=== PATIENT | female | born 1930 | race Caucasian/White ===

== ENCOUNTER → 2016-09-22 | Outpatient (CLI) | payer MEDICARE, BC ==
[~2016-09-22] MED LIST: /AMLO25TA PO; /ESCI10TA PO; /NITR4TASL SL; ASPI81TA85 PO; CALCTAB68 PO; COLC0.6T34 PO; GELN10GE TD; JANU50TA25 PO; JANU50TA8 PO; LASI20TA PO; LEVO100T4 PO; LOPR50TA PO; METF500T PO; NAPR500T2 PO; PRIL40CA PO; SENO8.6T9 OR; SIMV40TA2 PO; SITA50TAB PO; SYMB16INH INH; TENO25TA PO; ULOR80TA2 PO; ULTR50TA PO; VITA500T53 PO; ZOCO40TA PO; [UNRECOGNIZED DRUG - OTHER] EXT
[2016-09-22 08:44] LABS: MEAN CORPUSCULAR HGB CONC 33.9 g/dl (32.0-36.5); MEAN CORPUSCULAR VOLUME 91.4 fl (80.0-96.0); RED CELL DISTRIBUTION WIDTH 13.5 % (11.5-14.5)
[2016-09-22 08:52] LABS: ALBUMIN 3.7 GM/DL (3.2-5.2); ALBUMIN/GLOBULIN RATIO 1.16 (1.00-1.93); BILIRUBIN,TOTAL 0.5 MG/DL (0.2-1.0); CALCIUM LEVEL 9.4 MG/DL (8.8-10.2); CREATININE FOR GFR 1.03 MG/DL (0.55-1.02); FREE T4 1.5 NG/DL (0.76-1.46); POTASSIUM SERUM 3.9 MEQ/L (3.5-5.1); TOTAL PROTEIN 6.9 GM/DL (6.4-8.2)
== END ==
LOC: M LAB 07:29
PROVIDERS: ATTEND Nurse Practitioner Family
DX: I10 Essential (primary) hypertension (principal); E11.9 Type 2 diabetes mellitus without complications; E55.9 Vitamin D deficiency, unspecified; E03.9 Hypothyroidism, unspecified; E78.5 Hyperlipidemia, unspecified; D51.0 Vitamin B12 deficiency anemia due to intrinsic factor deficiency

== ENCOUNTER 2016-11-17 06:38 | Outpatient (CLI) | payer MEDICARE, BC ==
[~2016-11-17] VITALS: Ht 152.4 cm; Wt 68.5 kg
[~2016-11-17 06:38] MED LIST changes: +AMLO5TAB2; +ASPI1TAB PO; +FURO20TA2; +JANU100T; +LEVO75TA4; +LEXA5TAB13; +METO-346; +NAPR500T3 PO; +OMEP40CA2; +SIMV40TA2; +STOO100C PO; +TYLE500T78 PO; +VITA10002 PO
[2016-11-17] MEDS ORDERED: NS 1,000 ML IV SCH (07:00)
[2016-11-17] MEDS ORDERED: PROPOFOL 200 MG/20 ML VIAL As Ordered ONE ×2 (07:09→07:57)
--- NOTE | 2016-11-17 08:16 | ROOR ---
Patient Name: Flora Skinner Procedure Date: 11/17/2016 7:33 AM Date of : 1930 Age: 86 Room: [facility] Gender: Female Note Status: Finalized Procedure: Colonoscopy Indications: Clinically significant diarrhea of unexplained origin, Change in bowel habits Providers: Berlin Schaeffer MD Referring MD: BREANNA HENRY MD Requesting Provider: Medicines: Monitored Anesthesia Care Complications: No immediate complications. Procedure: Pre-Anesthesia Assessment: - Prior to the procedure, a History and Physical was performed, and patient medications and allergies were reviewed. The patient is competent. The risks and benefits of the procedure and the sedation options and risks were discussed with the patient. All questions were answered and informed consent was obtained. Patient identification and proposed procedure were verified by the physician, the nurse and the anesthesiologist in the pre-procedure area in the endoscopy suite. Mental Status Examination: alert and oriented. Airway Examination: normal oropharyngeal airway and neck mobility. Respiratory Examination: clear to auscultation. CV Examination: normal. Prophylactic Antibiotics: The patient does not require prophylactic antibiotics. Prior Anticoagulants: The patient has taken aspirin, last dose was 3 days prior to procedure. ASA Grade Assessment: III - A patient with severe systemic disease. After reviewing the risks and benefits, the patient was deemed in satisfactory condition to undergo the procedure. The anesthesia plan was to use moderate sedation / analgesia (conscious sedation). Immediately prior to administration of medications, the patient was re-assessed for adequacy to receive sedatives. The heart rate, respiratory rate, oxygen saturations, blood pressure, adequacy of pulmonary ventilation, and response to care were monitored throughout the procedure. The physical status of the patient was re-assessed after the procedure. The Colonoscope was introduced through the anus and advanced to the cecum, identified by appendiceal orifice and ileocecal valve. The colonoscopy was somewhat difficult due to multiple diverticula in the colon and significant looping. The patient tolerated the procedure well. The quality of the bowel preparation was adequate to identify polyps. Findings: The perianal exam findings include non-thrombosed external hemorrhoids. Multiple small and large-mouthed diverticula were found in the sigmoid colon, descending colon and ascending colon. Altered anatomy, muscular thickening of the martini of colon. A small polyp was found in the transverse colon. The polyp was pedunculated. The polyp was removed with a hot snare. Resection and retrieval were complete. Estimated blood loss: none. No additional abnormalities were found on retroflexion. Impression: - Non-thrombosed external hemorrhoids found on perianal exam. - Moderate diverticulosis in the sigmoid colon, in the descending colon and in the ascending colon. Altered anatomy, muscular thickening of the martini of colon. - One small polyp in the transverse colon, removed with a hot snare. Resected and retrieved. Recommendation: - Discharge patient to home (ambulatory). - Use fiber, for example Citrucel, Fibercon, Konsyl or Metamucil. - Telephone my office for pathology results in 2 weeks. Berlin Schaeffer MD Berlin Schaeffer MD 11/17/2016 8:15:27 AM This report has been signed electronically. Number of Addenda: 0 Note Initiated On: 11/17/2016 7:33 AM Estimated Blood Loss: Estimated blood loss: none.
[2016-11-17 08:30] VITALS: BP 138/71
== END 2016-11-17 08:44 | disposition home or self-care (01) ==
LOC: M OPP 06:38
PROVIDERS: ATTEND Surgery
DX: R19.4 Change in bowel habit (principal); R19.7 Diarrhea, unspecified; D12.3 Benign neoplasm of transverse colon; K64.4 Residual hemorrhoidal skin tags; K57.30 Diverticulosis of large intestine without perforation or abscess without bleeding; R14.0 Abdominal distension (gaseous); R15.9 Full incontinence of feces; I25.10 Atherosclerotic heart disease of native coronary artery without angina pectoris; I12.9 Hypertensive chronic kidney disease with stage 1 through stage 4 chronic kidney disease, or unspecified chronic kidney disease; E78.5 Hyperlipidemia, unspecified; E11.9 Type 2 diabetes mellitus without complications; E03.9 Hypothyroidism, unspecified; K44.9 Diaphragmatic hernia without obstruction or gangrene; R12 Heartburn; M19.90 Unspecified osteoarthritis, unspecified site; M54.89 Other dorsalgia; M81.0 Age-related osteoporosis without current pathological fracture; F32.9 Major depressive disorder, single episode, unspecified; F41.9 Anxiety disorder, unspecified; Z78.0 Asymptomatic menopausal state; Z95.5 Presence of coronary angioplasty implant and graft; Z86.79 Personal history of other diseases of the circulatory system; R06.02 Shortness of breath; N18.4 Chronic kidney disease, stage 4 (severe); R32 Unspecified urinary incontinence; Z87.09 Personal history of other diseases of the respiratory system; Z91.041 Radiographic dye allergy status; Z91.013 Allergy to seafood; Z88.3 Allergy status to other anti-infective agents; Z79.82 Long term (current) use of aspirin; Z79.899 Other long term (current) drug therapy; Z87.891 Personal history of nicotine dependence

== ENCOUNTER 2016-12-17 16:43 | Emergency (ER) | payer MEDICARE, BC ==
[~2016-12-17] VITALS: Ht 152.4 cm; Wt 71.4 kg
[2016-12-17 18:56] LABS: BASO % 0.4 % (0.0-1.0); EOS # 0.3 K/mm3 (0.0-0.50); EOS % 4.5 % (0.0-3.0); LARGE UNSTAINED CELL # 0.2 K/mm3 (0.0-0.4); LARGE UNSTAINED CELL % 2.9 % (0.0-4.0); LYMPH # 2.2 K/mm3 (1.5-4.5); MEAN CORPUSCULAR HEMOGLOBIN 31.8 pg (27.0-33.0); MEAN CORPUSCULAR HGB CONC 34.6 g/dl (32.0-36.5); MEAN CORPUSCULAR VOLUME 91.9 fl (80.0-96.0); MONO # 0.4 K/mm3 (0.0-0.8); MONO % 6.8 % (0.0-5.0); NEUTROPHILS # 3.2 K/mm3 (1.8-7.7); NEUTROPHILS % 50.4 % (36.0-66.0); PLATELET COUNT, AUTOMATED 224 k/mm3 (150-450); RED CELL DISTRIBUTION WIDTH 13.7 % (11.5-14.5); WHITE BLOOD COUNT 6.3 K/mm3 (4.0-10.0)
[2016-12-17 19:31] LABS: ANION GAP 11 MEQ/L (8-16); BLOOD UREA NITROGEN 20 MG/DL (7-18); CALCIUM LEVEL 9.4 MG/DL (8.8-10.2); CARBON DIOXIDE LEVEL 26 MEQ/L (21-32); CHLORIDE LEVEL 110 MEQ/L (98-107); CREATININE FOR GFR 1.28 MG/DL (0.55-1.02); GLUCOSE, FASTING 135 MG/DL (83-110); SODIUM LEVEL 147 MEQ/L (136-145)
[2016-12-17 19:37] LABS: ALBUMIN 4.1 GM/DL (3.2-5.2); ALBUMIN/GLOBULIN RATIO 1.41 (1.00-1.93); ALKALINE PHOSPHATASE 69 U/L (45-117); ALT/SGPT 16 U/L (12-78); AST/SGOT 11 U/L (15-37); BILIRUBIN,DIRECT < 0.1 MG/DL (0.0-0.2); BILIRUBIN,TOTAL 0.3 MG/DL (0.2-1.0); FREE T4 1.03 NG/DL (0.76-1.46)
[2016-12-17 20:26] VITALS: O2SAT 94
[2016-12-17 20:40] VITALS: BP 172/86
--- NOTE | 2016-12-17 20:41 | REP ---
Clinical: Dyspnea and cough. Comparison: 10/04/2012. Findings: Mediastinum and cardiac silhouette are within normal limits for portable technique. Thoracic aortic stent noted. No focal consolidation, effusion, or pneumothorax. Trace basilar atelectasis cannot be excluded. Skeletal structures demonstrate osteopenia and degenerative changes most notably involving the bilateral shoulders (right greater than left). Impression: Chronic-appearing interstitial changes. No obvious acute cardiopulmonary process. Cannot exclude trace basilar atelectasis. Signed by Curtis Garcia MD 12/17/2016 08:33 P
--- NOTE | 2016-12-18 17:26 | ECGEPIP ---
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
== END 2016-12-17 21:14 | disposition home or self-care (01) ==
LOC: M ED 16:43
DX: I25.10 Atherosclerotic heart disease of native coronary artery without angina pectoris (principal); I10 Essential (primary) hypertension; E11.9 Type 2 diabetes mellitus without complications; K21.9 Gastro-esophageal reflux disease without esophagitis; E78.9 Disorder of lipoprotein metabolism, unspecified; E07.9 Disorder of thyroid, unspecified; Z95.5 Presence of coronary angioplasty implant and graft; Z87.891 Personal history of nicotine dependence

== ENCOUNTER 2017-03-12 13:25 | Emergency (ER) | payer OTHER, MEDICARE, BC ==
[~2017-03-12] VITALS: Ht 152.4 cm; Wt 71.8 kg
[2017-03-12 13:34] VITALS: BP 136/65
--- NOTE | 2017-03-13 08:01 | ECGEPIP ---
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
== END 2017-03-12 14:32 | disposition home or self-care (01) ==
LOC: EDBD 13:25 → M ED 13:25
DX: Z04.1 Encounter for examination and observation following transport accident (principal); Z95.0 Presence of cardiac pacemaker; V43.62XA Car passenger injured in collision with other type car in traffic accident, initial encounter; Y92.410 Unspecified street and highway as the place of occurrence of the external cause; Y93.9 Activity, unspecified; Y99.9 Unspecified external cause status; I25.10 Atherosclerotic heart disease of native coronary artery without angina pectoris; Z95.5 Presence of coronary angioplasty implant and graft; K21.9 Gastro-esophageal reflux disease without esophagitis; I10 Essential (primary) hypertension; Z79.82 Long term (current) use of aspirin; Z79.899 Other long term (current) drug therapy; Z91.041 Radiographic dye allergy status; Z91.013 Allergy to seafood

== ENCOUNTER → 2017-10-07 | Outpatient (CLI) | payer MEDICARE, BC | LOC: M RAD 08:23 | DX: R79.9 Abnormal finding of blood chemistry, unspecified (principal) ==

== ENCOUNTER → 2017-10-10 | Outpatient (CLI) | payer MEDICARE, BC ==
[~2017-10-10] MED LIST changes: -/AMLO25TA PO; -/ESCI10TA PO; -/NITR4TASL SL; -AMLO5TAB2; -ASPI1TAB PO; -ASPI81TA85 PO; -CALCTAB68 PO; -COLC0.6T34 PO; -FURO20TA2; -GELN10GE TD; +ISOVUE-370 76% 100ML VIAL (Q9967) As Ordered; -JANU100T; -JANU50TA25 PO; -JANU50TA8 PO; -LASI20TA PO; -LEVO100T4 PO; -LEVO75TA4; -LEXA5TAB13; -LOPR50TA PO; -METF500T PO; -METO-346; -NAPR500T2 PO; -NAPR500T3 PO; -OMEP40CA2; -PRIL40CA PO; -SENO8.6T9 OR; -SIMV40TA2; -SIMV40TA2 PO; -SITA50TAB PO; -STOO100C PO; -SYMB16INH INH; -TENO25TA PO; -TYLE500T78 PO; -ULOR80TA2 PO; -ULTR50TA PO; -VITA10002 PO; -VITA500T53 PO; -ZOCO40TA PO; -[UNRECOGNIZED DRUG - OTHER] EXT
== END ==
LOC: M RAD 17:44
DX: R06.02 Shortness of breath (principal); R79.1 Abnormal coagulation profile
CPT/HCPCS: Q9967

== ENCOUNTER → 2019-01-19 | Outpatient (CLI) | payer MEDICARE, BC ==
[~2019-01-19] MED LIST changes: +AMLO5TAB6; +ASPI81TA26 PO; +ASPI81TA85 PO; +CALCTAB68 PO; +COLC0.6T34 PO; +CYAN100049 PO; +FURO20TA2; +GELN10GE TD; +GRX1OIN EXT; -ISOVUE-370 76% 100ML VIAL (Q9967) As Ordered; +JANU100T; +JANU50TA25 PO; +JANU50TA8 PO; +LASI20TA PO; +LEVO100T4 PO; +LEVO75TA4; +LEXA1TAB PO; +LEXA5TAB13; +LOPR50TA PO; +METF500T PO; +METO-346; +MM S100C PO; +NAPR-885 PO; +NAPR500T2 PO; +NITR0.4S SL; +NORV2TAB PO; +OMEP40CA97; +PRIL40CA PO; +SENO8.6T9 OR; +SIMV40TA2; +SIMV40TA2 PO; +SITA50TAB PO; +SYMB16INH INH; +TENO25TA PO; +TYLE500T78 PO; +ULOR80TA2 PO; +ULTR50TA PO; +VITA500T53 PO; +ZOCO40TA PO
[2019-01-19 11:39] LABS: HEMATOCRIT 44.9 % (36.0-47.0); MEAN CORPUSCULAR HGB CONC 33.4 g/dl (32.0-36.5); MEAN CORPUSCULAR VOLUME 92.8 fl (80.0-96.0); PLATELET COUNT, AUTOMATED 263 10^3/uL (150-450); RED BLOOD COUNT 4.84 10^6/uL (4.00-5.40); WHITE BLOOD COUNT 8.3 10^3/uL (4.0-10.0)
[2019-01-19 11:56] LABS: ALBUMIN 3.8 GM/DL (3.2-5.2); BILIRUBIN,TOTAL 0.9 MG/DL (0.2-1.0); CALCIUM LEVEL 9.4 MG/DL (8.8-10.2); CHOLESTEROL RISK RATIO 2.792 (<5); CREATININE FOR GFR 1.06 MG/DL (0.55-1.30); FREE T4 1.26 NG/DL (0.76-1.46); POTASSIUM SERUM 3.8 MEQ/L (3.5-5.1); THYROID STIMULATING HORMONE 3.97 uIU/ML (0.358-3.740); TOTAL PROTEIN 7.1 GM/DL (6.4-8.2)
[2019-01-19 12:49] LABS: HEMOGLOBIN A1c 6.3 %
== END ==
LOC: M SMT 08:15
PROVIDERS: ATTEND Nurse Practitioner Family
DX: I10 Essential (primary) hypertension (principal); E11.9 Type 2 diabetes mellitus without complications; E03.9 Hypothyroidism, unspecified; E78.49 Other hyperlipidemia

== ENCOUNTER 2019-03-10 11:43 | Emergency (ER) | payer MEDICARE, BC ==
[~2019-03-10] VITALS: Ht 152.4 cm; Wt 81.8 kg
[~2019-03-10 11:43] MED LIST changes: -SIMV40TA2; +SIMV40TA20
[2019-03-10] MEDS ORDERED: MORPHINE 2 MG/ML 1ML VIAL (J2270) IV ONE (12:15)
[2019-03-10 12:25] LABS: BASO # 0.1 10^3/uL (0.0-0.2); BASO % 0.7 % (0.0-1.0); EOS # 0.2 10^3/uL (0.0-0.5); EOS % 2.3 % (0.0-3.0); HEMATOCRIT 44.2 % (36.0-47.0); HEMOGLOBIN 15.1 g/dl (12.0-15.5); LYMPH # 1.4 10^3/uL (1.5-5.0); LYMPH % 12.9 % (24.0-44.0); MEAN CORPUSCULAR HEMOGLOBIN 31.2 pg (27.0-33.0); MEAN CORPUSCULAR HGB CONC 34.2 g/dl (32.0-36.5); MEAN CORPUSCULAR VOLUME 91.3 fl (80.0-96.0); MONO # 0.8 10^3/uL (0.0-0.8); MONO % 7.6 % (0.0-5.0); PLATELET COUNT, AUTOMATED 257 10^3/uL (150-450); RED BLOOD COUNT 4.84 10^6/uL (4.00-5.40); WHITE BLOOD COUNT 10.5 10^3/uL (4.0-10.0)
[2019-03-10] MEDS ORDERED: SYMB16INH INH (12:27)
[2019-03-10] MEDS ORDERED: FERR325T3 PO (12:27)
[2019-03-10 12:43] LABS: INR 1.03; PROTHROMBIN TIME 13.2 SECONDS (11.8-14.0)
[2019-03-10 13:02] LABS: ALBUMIN 3.9 GM/DL (3.2-5.2); ALT/SGPT 15 U/L (12-78); BILIRUBIN,DIRECT 0.3 MG/DL (0.0-0.2); BILIRUBIN,TOTAL 0.9 MG/DL (0.2-1.0); BLOOD UREA NITROGEN 13 MG/DL (7-18); CALCIUM LEVEL 9.5 MG/DL (8.8-10.2); CARBON DIOXIDE LEVEL 28 MEQ/L (21-32); CHLORIDE LEVEL 106 MEQ/L (98-107); CK-MB VALUE MASS < 1.0 NG/ML (<3.6); CPK CREATINE PHOSPHOKINASE 59 U/L (26-192); GLOMERULAR FILTRATION RATE 49.8 (>32); GLUCOSE, FASTING 156 MG/DL (70-100); LIPASE 68 U/L (73-393); MB/CK RELATIVE INDEX 1.69 (< OR =4); NT-PRO BNP 472 PG/ML (<450); POTASSIUM SERUM 3.5 MEQ/L (3.5-5.1); SODIUM LEVEL 142 MEQ/L (136-145); TOTAL PROTEIN 7.3 GM/DL (6.4-8.2); TROPONIN I < 0.02 NG/ML (< 0.10)
[2019-03-10] MEDS ORDERED: NAPR-837 PO (13:17)
[2019-03-10 13:24] VITALS: BP 140/65
--- NOTE | 2019-03-10 13:27 | ECGEPIP ---
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
--- NOTE | 2019-03-10 13:45 | REP ---
AP PORTABLE CHEST: 03/10/2019. COMPARISON: CT angio 10/10/2017, AP chest 12/17/2016. CLINICAL HISTORY: Chest pain. Since the prior studies, there has been placement of a dual-lead pacer with lead tips in the right atrium and right ventricle and the battery unit overlying the left upper chest. There is a descending thoracic aortic aneurysm stent extending to the aortic hiatus and just below. Appearance is unchanged. Fibrotic changes and some lateral pleural thickening at the left lateral base. I see no definite effusion or dense consolidation. The right CP angle is sharply defined. There is no apical pneumothorax. Underlying fibrosis and COPD noted. Heart is mildly enlarged. There is some pulmonary venous hypertension without pulmonary edema. IMPRESSION: 1. Mild cardiomegaly with venous hypertension but no pulmonary edema. 2. Some basilar fibrotic change at the left CP angle and elsewhere in the lower lung zones but no definite effusion, acute infiltrate, or parenchymal mass. 3. New multilead pacer over the left upper chest with leads in the right atrium and right ventricle. 4. 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 Electronically Signed by Dano Nolasco MD 03/10/2019 07:57 P
== END 2019-03-10 13:35 | disposition home or self-care (01) ==
LOC: M ED 11:43
DX: R07.89 Other chest pain (principal); M19.012 Primary osteoarthritis, left shoulder; R94.31 Abnormal electrocardiogram [ECG] [EKG]; I51.7 Cardiomegaly; J44.9 Chronic obstructive pulmonary disease, unspecified; Z95.0 Presence of cardiac pacemaker; Z95.828 Presence of other vascular implants and grafts; E11.9 Type 2 diabetes mellitus without complications; K21.9 Gastro-esophageal reflux disease without esophagitis; F17.210 Nicotine dependence, cigarettes, uncomplicated; Z91.041 Radiographic dye allergy status; Z79.02 Long term (current) use of antithrombotics/antiplatelets; Z79.1 Long term (current) use of non-steroidal anti-inflammatories (NSAID); Z79.82 Long term (current) use of aspirin; Z79.899 Other long term (current) drug therapy
CPT/HCPCS: 71045; 80048; 80076; 82550; 82553; 83690; 83880; 84443; 84484; 85025; 85610; 93005; 93041; 94760; 96374; 99284; J2270

== ENCOUNTER → 2019-07-20 | Outpatient (CLI) | payer MEDICARE, BC ==
[~2019-07-20] MED LIST changes: +FERR325T3 PO; +NAPR-837 PO
[2019-07-20 12:23] LABS: HEMATOCRIT 46.5 % (36.0-47.0); HEMOGLOBIN 15.5 g/dl (12.0-15.5); MEAN CORPUSCULAR HEMOGLOBIN 31.2 pg (27.0-33.0); MEAN CORPUSCULAR HGB CONC 33.3 g/dl (32.0-36.5); MEAN CORPUSCULAR VOLUME 93.6 fl (80.0-96.0); PLATELET COUNT, AUTOMATED 251 10^3/uL (150-450); RED BLOOD COUNT 4.97 10^6/uL (4.00-5.40); WHITE BLOOD COUNT 7.8 10^3/uL (4.0-10.0)
[2019-07-20 12:52] LABS: BILIRUBIN,TOTAL 0.5 MG/DL (0.2-1.0); CALCIUM LEVEL 9.4 MG/DL (8.8-10.2); CHOLESTEROL RISK RATIO 2.716 (<5); CREATININE FOR GFR 1.16 MG/DL (0.55-1.30); FREE T4 1.21 NG/DL (0.76-1.46); GLOMERULAR FILTRATION RATE 46.8 (>32); POTASSIUM SERUM 4.1 MEQ/L (3.5-5.1); THYROID STIMULATING HORMONE 2.25 uIU/ML (0.358-3.740); TOTAL PROTEIN 7.2 GM/DL (6.4-8.2)
[2019-07-20 12:54] LABS: TOTAL 25(OH) VITAMIN D 32.4 NG/ML (30.0-100.0)
[2019-07-20 13:02] LABS: HEMOGLOBIN A1c 6.6 %
== END ==
LOC: M PLALAB 09:11
PROVIDERS: ATTEND Nurse Practitioner Family
DX: I10 Essential (primary) hypertension (principal); E11.9 Type 2 diabetes mellitus without complications; E55.9 Vitamin D deficiency, unspecified; E78.49 Other hyperlipidemia; Z79.899 Other long term (current) drug therapy